=== PATIENT | female | born 1960 | race Hispanic/Latino ===

== ENCOUNTER → 2021-11-28 | Outpatient (CLI) | payer BC | END | disposition home or self-care (01) | LOC: RAH 12:28 | PROVIDERS: ATTEND Internal Medicine | DX: M46.22 Osteomyelitis of vertebra, cervical region (principal); M46.42 Discitis, unspecified, cervical region; M48.52XA Collapsed vertebra, not elsewhere classified, cervical region, initial encounter for fracture; M47.22 Other spondylosis with radiculopathy, cervical region; M48.02 Spinal stenosis, cervical region; J90 Pleural effusion, not elsewhere classified | CPT/HCPCS: 72141; 72146 ==